=== PATIENT | male | born 1975 | race Caucasian/White ===

== ENCOUNTER 2017-07-05 07:11 | Emergency (ER) | payer BC ==
[~2017-07-05 07:11] MED LIST: IMODIUM; OND4 PO; TUMS
[2017-07-05 07:17] VITALS: BP 134/93
[2017-07-05] MEDS ORDERED: FLUORESCEIN SOD 1 MG 1 EA STRP OD ONE (07:20)
[2017-07-05] MEDS ORDERED: PROPARACAINE 0.5% OP 15ML BTL OD ONE (07:25)
[2017-07-05] MEDS ORDERED: GENT5DRO31 OP (07:41)
--- NOTE | 2017-07-05 07:41 | ER Report ---
History and Physical Time Seen By MD: 07:20 Hx. of Stated Complaint: PATIENT WAS CLEANING A HANDGUN LAST NIGHT AND WAS HIT IN THE LEFT EYE BY ONE OF THE PARTS HPI/ROS CHIEF COMPLAINT: Eye trauma HISTORY OF PRESENT ILLNESS: 41-year-old male was cleaning a handgun a spring released and went into his open left eye sequelae since then he's had irritation discomfort to the eye no changes in visual acuity is obviously red and watery patient denies any additional complaints of pain REVIEW OF SYSTEMS: Respiratory: No cough, no dyspnea. Cardiovascular: No chest pain, no palpitations. Gastrointestinal: No vomiting, no abdominal pain. Musculoskeletal: No back pain. Remainder of the 14 system rev: Yes Allergies: Coded Allergies: No Known Drug Allergies (Verified , 05/22/08) Reviewed Nurses Notes: Yes Old Medical Records Reviewed: Yes Hx Substance Use Disorder: No Hx Alcohol Use: Yes (OCC) Constitutional Vital Sign - Last 24 Hours 07/05/17 07:17 Temp 98.3 Pulse 85 Resp 20 B/P (MAP) 134/93 Pulse Ox 94 O2 Delivery Room Air Physical Exam General appearance: Alert no distress. Respiratory: Chest is non tender, lungs are clear to auscultation. Cardiac: Regular rate and rhythm [ ] I examination examination of the left eye shows an obvious injected sclera extraocular motors are fully intact and functional visual acuity is 20/40 bilaterally without any obvious discrepancy patient had a positive corneal abrasion determined on fluorescein stain of the inferior lateral iris margin patient had proparacaine drops placed prior to examination there was no [place] sign no obvious signs of traumatic lobe otherwise negative examination DIFFERENTIAL DIAGNOSIS: After history and physical exam differential diagnosis was considered for corneal abrasion Medical Decision Making ED Course/Re-evaluation ED Course ED course course medical decision making a 41-year-old male with obvious trauma to the eye positive for corneal abrasion on fluorescein staining no indication for slit-lamp at this time patient will be placed on topical antibiotic drops and ophthalmology follow-up Decision to Disposition Date: Jul 05, 2017 Decision to Disposition Time: 07:39 Depart Departure Latest Vital Signs Vital Signs Date Time Temp Pulse Resp B/P (MAP) Pulse Ox O2 Delivery O2 Flow Rate FiO2 07/05/17 07:17 98.3 85 20 134/93 94 Room Air Impression: Primary Impression: Corneal abrasion Condition: Improved Disposition: HOME OR SELF-CARE Referrals: VALARIE JAMISON DO (PCP) 5 Days New Scripts Gentamicin Sulfate (GENTAMICIN SULFATE) 5 Ml Drops 5 ML OP BID for 7 Days, #30 ML Prov: VALORIE CATALAN MD 07/05/17 Patient Instructions: Corneal Abrasion (DC) VALORIE CATALAN MD Jul 05, 2017 07:41
== END 2017-07-05 07:50 | disposition home or self-care (01) ==
LOC: ER 07:23
DX: S05.02XA Injury of conjunctiva and corneal abrasion without foreign body, left eye, initial encounter (principal); W22.8XXA Striking against or struck by other objects, initial encounter
CPT/HCPCS: 99282